=== PATIENT | female | born 1945 | race Caucasian/White ===

== ENCOUNTER 2018-09-08 09:17 | Outpatient (CLI) | payer MEDICARE, OTHER ==
[~2018-09-08] VITALS: Ht 162.6 cm; Wt 108.0 kg
[~2018-09-08 09:17] MED LIST: ASPI-875 PO; CRAN450C PO; CRANBERRY 500 MG PO; ENAL20TA PO; GFN600TCR PO; GUAI1TBM14 PO; HYDR1CAP2 PO; LOVA20TA2 PO; NF-ESOM40C PO; NITR100C PO
[2018-09-08] MEDS ORDERED: ASPI-999 PO (14:49)
[2018-09-08] MEDS ORDERED: CELE200C PO (14:49)
[2018-09-08] MEDS ORDERED: ENAL20TA PO (14:49)
[2018-09-08] MEDS ORDERED: CETI10TA17 PO (14:49)
[2018-09-08] MEDS ORDERED: LOVA20TA2 PO (14:49)
[2018-09-08] MEDS ORDERED: CRAN500T2 PO (14:49)
== END 2018-09-08 14:57 | disposition home or self-care (01) ==
LOC: PREOP 09:17
PROVIDERS: ATTEND Surgery
DX: Z01.818 Encounter for other preprocedural examination (principal)

== ENCOUNTER 2018-09-14 09:46 | Day surgery (SDC) | payer MEDICARE, OTHER ==
[~2018-09-14] VITALS: Ht 162.6 cm; Wt 108.0 kg
[~2018-09-14 09:46] MED LIST changes: +ASPI-999 PO; +CELE200C PO; +CETI10TA17 PO; +CRAN500T2 PO
[2018-09-14] MEDS ORDERED: NS IV 500 ML 500 ML IV PRN (09:55)
[2018-09-14] MEDS ORDERED: NS IV 500 ML 500 ML ONE (09:59)
[2018-09-14] MEDS ORDERED: HURRICAINE EXT TUBE (BENZOCAINE) XX PRN (10:00)
[2018-09-14] MEDS ORDERED: fentaNYL INJECTION 100 MCG/2 ML AMP IVP ONE (10:00)
[2018-09-14] MEDS ORDERED: MIDAZOLAM 2 MG/2 ML (VERSED) VIAL IVP ONE (10:00)
[2018-09-14 10:10] VITALS: BP 183/80
--- NOTE | 2018-09-14 12:04 | Conscious Sedation/ASA ---
Conscious Sedation Pre-Proced Time 10:00 ASA Score 2 For ASA 3 and 4: Consider anesthesia and medical clearance. Also, for patients with a history of failed moderate sedation consider anesthesia. Airway Lungs Heart ASA score ASA 1: a normal healthy patient ASA 2: a patient with a mild systemic disease (mid diabetes, controlled hypertension, obesity ASA 3: a patient with a severe systemic disease that limits activity (angina , COPD, prior Myocardial infarction) ASA 4: a patient with an incapacitating disease that is a constant threat to life (CHF, renal failure) ASA 5: a moribund patient not expected to survive 24 hrs. (ruptured aneurysm) ASA 6: a declared brain patient whose organs are being harvested. For emergent operations, add the letter E after the classification Mallampati Classification Grade 2 Sedation Plan Analgesia, Amnesia, Plan communicated to team members, Discussed options with patient/fam, Discussed risks with patient/fam The patient is an appropriate candidate to undergo the planned procedure, sedation, and anesthesia. The patient immediately re-assessed prior to indication. YANDEL RIDLEY MD Sep 14, 2018 12:04
--- NOTE | 2018-09-14 12:05 | Progress Note-Pre Operative ---
Pre-Operative Progress Note H&P Reviewed The H&P was reviewed, patient examined and no changes noted. Date Seen by Provider: Sep 14, 2018 Time Seen by Provider: 10:00 Date H&P Reviewed: Sep 14, 2018 Time H&P Reviewed: 10:00 Pre-Operative Diagnosis: GERD, screening o YANDEL RIDLEY MD Sep 14, 2018 12:05
[2018-09-14] MEDS ORDERED: morphine INJ 10 MG/ML 1ML (SYR OR VIAL) IV PRN (12:15)
[2018-09-14] MEDS ORDERED: ACETAMINOPHEN 325 MG TABLET PO PRN (12:15)
[2018-09-14] MEDS ORDERED: ONDANSETRON 4 MG/2 ML (SDV) Z0FRAN IV PRN (12:15)
[2018-09-14] MEDS ORDERED: HYDROcodone/APAP 5 MG/325 MG (LORTAB) TAB PO PRN (12:15)
--- OUTSIDE RECORDS SUMMARY | 2018-09-14 12:22 | XMS REPORT | Continuity of Care Document ---
Author Author [facility] Organization [facility] Address Unknown Phone Unavailable Allergies Active Description Code Type Severity Reaction Onset Reported/Identified Relationship to Patient Clinical Status Yes No Known Drug Allergies [id number] Drug Allergy Unknown N/A 2018 Medications There is no data. Problems Date Dx Coded Attending Type Code Diagnosis Diagnosed By 09/02/2013 JHONY MACIEL, JOCELYNE Vyas Ot 401.9 HYPERTENSION NOS 09/02/2013 JHONY MACIEL, JOCELYNE Vyas Ot 715.36 LOC OSTEOARTH NOS-L/LEG 04/17/2015 Ot V76.12 04/17/2015 Ot V76.12 04/17/2015 Ot V76.12 04/17/2015 Ot 272.4 04/17/2015 Ot 780.60 04/17/2015 Ot 789.02 04/17/2015 MARIZAIIKOKI MOSSP Ot V76.12 04/17/2015 KOKI VIVEROS Ot 726.73 04/17/2015 JHONY MACIEL, JOCELYNE Vyas Ot 715.36 04/17/2015 JHONY MACIEL, JOCELYNE Vyas Ot 780.79 04/17/2015 JHONY MACIEL, JOCELYNE Vyas Ot V72.63 04/17/2015 JHONY MACIEL, JOCELYNE Vyas Ot V72.83 04/17/2015 JHONY MACIEL, JOCELYNE Vyas Ot V74.8 04/17/2015 AMAN MACIEL, KEN Issa Ot V76.12 04/18/2015 Ot V76.12 04/18/2015 Ot V76.12 04/18/2015 Ot V76.12 04/18/2015 Ot 272.4 04/18/2015 Ot 780.60 04/18/2015 Ot 789.02 04/18/2015 KOKI VIVEROS Ot V76.12 04/18/2015 KOKI VIVEROS Ot 726.73 04/18/2015 JHONY MACIEL, JOCELYNE Vyas Ot 715.36 04/18/2015 JHONY MACIEL, JOCELYNE P Ot 780.79 04/18/2015 JHONY MACIEL, JOCELYNE P Ot V72.63 04/18/2015 JHONY MACIEL, JOCELYNE P Ot V72.83 04/18/2015 JHONY MACIEL, JOCELYNE P Ot V74.8 04/18/2015 AMAN MACIEL, KEN D Ot V76.12 04/18/2015 AMAN MACIEL, KEN D Ot V76.12 05/08/2015 AMAN MACIEL, KEN D Ot V76.11 05/16/2015 AMAN MACIEL, KEN D Ot 793.80 12/02/2015 Ot V76.12 12/02/2015 Ot V76.12 12/02/2015 Ot 272.4 12/02/2015 Ot 780.60 12/02/2015 Ot 789.02 12/02/2015 KOKI VIVEROS Ot V76.12 12/02/2015 KOKI VIVEROS Ot 726.73 12/02/2015 JHONY MACIEL, JOCELYNE P Ot 715.36 12/02/2015 JHONY MACIEL, JOCELYNE P Ot 780.79 12/02/2015 JHONY MACIEL, JOCELYNE P Ot V72.63 12/02/2015 JHONY MACIEL, JOCELYNE P Ot V72.83 12/02/2015 JHONY MACIEL, JOCELYNE P Ot V74.8 12/02/2015 AMAN MACIEL, KEN D Ot V76.12 12/02/2015 AMAN MCAIEL, KEN D Ot V76.11 12/02/2015 AMAN MACIEL, KEN D Ot 793.80 12/27/2015 AMAN MACIEL, KEN D Ot D24.2 06/24/2016 Ot V76.12 OTH SCREEN MAMMO-MALIGN NEOPLASM OF ANDREI 06/24/2016 Ot V76.12 OTH SCREEN MAMMO-MALIGN NEOPLASM OF ANDREI 06/24/2016 Ot 272.4 HYPERLIPIDEMIA NEC/NOS 06/24/2016 Ot 780.60 FEVER, UNSPECIFIED 06/24/2016 Ot 789.02 ABDOMINAL PAIN, LEFT UPPER QUADRANT 06/24/2016 KOKI VIVEROS Ot V76.12 OTH SCREEN MAMMO-MALIGN NEOPLASM OF ANDREI 06/24/2016 KOKI VIVEROS TELEPHONE SOLICITOR Ot 726.73 CALCANEAL SPUR 06/24/2016 JOCELYNE BOOKER MD Ot 715.36 LOC OSTEOARTH NOS-L/LEG 06/24/2016 JOCELYNE BOOKER MD Ot 780.79 OTH MALAISE FATIGUE 06/24/2016 JOCELYNE BOOKER MD Ot V72.63 PRE-PROCEDURAL LABORATORY EXAMINATION 06/24/2016 JOCELYNE BOOKER MD Ot V72.83 EXAM PRE-OPERATIVE NEC 06/24/2016 JOCELYNE BOOKER MD Ot V74.8 SCREEN-BACTERIAL DIS NEC 06/24/2016 AMAN MACIEL, KEN Issa Ot V76.12 OTH SCREEN MAMMO-MALIGN NEOPLASM OF ANDREI 06/24/2016 AMAN MACIEL, KEN Issa Ot V76.11 SCRN MAMMO-HIGH RISK PT, MALIGNANT NEOPL 06/24/2016 AMAN MACIEL, KEN Issa Ot 793.80 UNSPEC ABNORMAL MAMMOGRAM 06/24/2016 AMAN MACIEL, KEN Issa Ot D24.2 BENIGN NEOPLASM OF LEFT BREAST 06/24/2016 ALOK ESCALANTE N INVENTORY CONTROL ANALYST Ot N60.02 SOLITARY CYST OF LEFT BREAST 06/25/2016 Ot V76.12 OTH SCREEN MAMMO-MALIGN NEOPLASM OF ANDREI 06/25/2016 Ot V76.12 OTH SCREEN MAMMO-MALIGN NEOPLASM OF ANDREI 06/25/2016 Ot 272.4 HYPERLIPIDEMIA NEC/NOS 06/25/2016 Ot 780.60 FEVER, UNSPECIFIED 06/25/2016 Ot 789.02 ABDOMINAL PAIN, LEFT UPPER QUADRANT 06/25/2016 KOKI VIVEROS TELEPHONE SOLICITOR Ot V76.12 OTH SCREEN MAMMO-MALIGN NEOPLASM OF ANDREI 06/25/2016 KOKI VIVEROS TELEPHONE SOLICITOR Ot 726.73 CALCANEAL SPUR 06/25/2016 JOCELYNE BOOKER MD Ot 715.36 LOC OSTEOARTH NOS-L/LEG 06/25/2016 JOCELYNE BOOKER MD Ot 780.79 OTH MALAISE FATIGUE 06/25/2016 JOCELYNE BOOKER MD Ot V72.63 PRE-PROCEDURAL LABORATORY EXAMINATION 06/25/2016 JOCELYNE BOOKER MD Ot V72.83 EXAM PRE-OPERATIVE NEC 06/25/2016 JOCELYNE BOOKER MD Ot V74.8 SCREEN-BACTERIAL DIS NEC 06/25/2016 AMAN MACIEL, KEN Issa Ot V76.12 OTH SCREEN MAMMO-MALIGN NEOPLASM OF ANDREI 06/25/2016 AMAN MACIEL, KEN Issa Ot V76.11 SCRN MAMMO-HIGH RISK PT, MALIGNANT NEOPL 06/25/2016 AMAN MACIEL, KEN Issa Ot 793.80 UNSPEC ABNORMAL MAMMOGRAM 06/25/2016 AMAN MACIEL, KEN Issa Ot D24.2 BENIGN NEOPLASM OF LEFT BREAST 06/25/2016 ALOK ESCALANTE INVENTORY CONTROL ANALYST Ot N60.02 SOLITARY CYST OF LEFT BREAST 06/25/2016 ALOK ESCALANTE INVENTORY CONTROL ANALYST Ot N60.02 SOLITARY CYST OF LEFT BREAST 07/02/2016 JOCELYNE BOOKER MD Ot 715.36 LOC OSTEOARTH NOS-L/LEG 07/02/2016 JOCELYNE BOOKER MD Ot 780.79 OTH MALAISE FATIGUE 07/02/2016 JOCELYNE BOOKER MD Ot V72.63 PRE-PROCEDURAL LABORATORY EXAMINATION 07/02/2016 JOCELYNE BOOKER MD Ot V72.83 EXAM PRE-OPERATIVE NEC 07/02/2016 JOCELYNE BOOKER MD Ot V74.8 SCREEN-BACTERIAL DIS NEC 07/15/2016 ALOK ESCALANTE INVENTORY CONTROL ANALYST Ot N60.02 SOLITARY CYST OF LEFT BREAST 07/20/2016 ALOK ESCALANTE INVENTORY CONTROL ANALYST Ot N60.02 SOLITARY CYST OF LEFT BREAST 11/01/2016 JOCELYNE BOOKER MD Ot 715.36 LOC OSTEOARTH NOS-L/LEG 11/01/2016 JOCELYNE BOOKER MD Ot 780.79 OTH MALAISE FATIGUE 11/01/2016 JOCELYNE BOOKER MD Ot V72.63 PRE-PROCEDURAL LABORATORY EXAMINATION 11/01/2016 JOCELYNE BOOKER MD Ot V72.83 EXAM PRE-OPERATIVE NEC 11/01/2016 JOCELYNE BOOKER MD Ot V74.8 SCREEN-BACTERIAL DIS NEC 2018 YANDEL RIDLEY MD, Ot Z01.818 ENCOUNTER FOR OTHER PREPROCEDURAL EXAMIN 09/12/2018 YANDEL RIDLEY MD, Ot Z01.818 ENCOUNTER FOR OTHER PREPROCEDURAL EXAMIN Procedures Code Description Performed By Performed On 81.54 08/30/2013 Results There is no data. Encounters ACCT No. Visit Date/Time Discharge Status Pt. Type Provider Facility Loc./Unit Complaint [id number] 2018 09:17:00 2018 14:57:00 DIS Outpatient YANDEL RIDLEY MD [facility] PREOP COLONOSCOPY/EGD [id number] 06/24/2016 13:11:00 06/24/2016 23:59:59 CLS Outpatient ALOK ESCALANTE APRN [facility] RAD 6 MONTH FOLLOW UP OF CYST IN LT BREAST [id number] 12/02/2015 10:42:00 12/02/2015 23:59:59 CLS Outpatient KEN NEWTON MD [facility] RAD BENIGN TUMOR OF L BREAST [id number] 04/24/2015 07:45:00 04/24/2015 23:59:59 CLS Outpatient KEN NEWTON MD [facility] RAD ABNORMAL MAMMO [id number] 04/17/2015 15:13:00 04/17/2015 23:59:59 CLS Outpatient KEN NEWTON MD [facility] RAD SCREENING [id number] 04/17/2014 09:25:00 04/17/2014 23:59:59 CLS Outpatient KEN NEWTON MD [facility] RAD ROUTINE [id number] 08/30/2013 06:06:00 09/02/2013 11:10:00 DIS Inpatient JOCELYNE BOOKER MD [facility] SURGICAL LEFT KNEE OSTEOARTHRITIS [id number] 08/28/2013 12:08:00 08/28/2013 23:59:59 CLS Outpatient JOCELYNE BOOKER MD [facility] PREOP LEFT KNEE OSTEOARTHRITIS [id number] 05/16/2013 09:43:00 05/16/2013 23:59:59 CLS Outpatient KOKI VIVEROS [facility] RAD L FOOT PAIN [id number] 04/12/2013 08:57:00 04/12/2013 23:59:59 CLS Outpatient KOKI VIVEROS [facility] RAD SCREENING [id number] 09/14/2018 11:30:00 PEN Preadmit YANDEL RIDLEY MD [facility] ENDO SCREENING/ABD PAIN/REFLUX [id number] 10/06/2012 11:31:00 Document Registration [id number] 03/16/2012 13:46:00 Document Registration [id number] 02/26/2011 07:45:00 Document Registration [id number] 01/29/2010 14:14:00 Document Registration
[2018-09-14] MEDS ORDERED: fentaNYL INJECTION 100 MCG/2 ML AMP ONE ×3 (13:15→14:11)
[2018-09-14] MEDS ORDERED: LIDOCAINE JELLY 2% 6 ML SYRINGE ONE (13:15)
[2018-09-14] MEDS ORDERED: MIDAZOLAM 2 MG/2 ML (VERSED) VIAL ONE ×5 (13:15→13:16)
[2018-09-14] MEDS ORDERED: HURRICAINE EXT TUBE (BENZOCAINE) ONE (13:16)
--- NOTE | 2018-09-14 14:51 | Progress Note-Post Operative ---
Post-Operative Progess Note Surgeon (s)/Campaign Assistant (s) Surgeon YANDEL RIDLEY MD Campaign Assistant: none Pre-Operative Diagnosis GERD, screening colo Post-Operative Diagnosis reflux esophagitis(stage 2), intact band, no slippage/erosion, mild gastritis. chronic stage 2 ext and int hemorrhoids. Procedure & Operative Findings Date of Procedure 09/14/18 Procedure Performed/Findings EGD wtih bx. Colonscopy. Anesthesia Type CS Estimated Blood Loss Estimated blood loss (mL): minimal Specimens/Packing Specimens Removed GE jxn, antrum YANDEL RIDLEY MD Sep 14, 2018 2:51 pm
--- NOTE | 2018-09-14 14:54 | Discharge Inst-Surgical ---
D/C Lap Instructions-KEYANA Follow Up PRN Activity as tolerated High Fiber Diet 25g or more per day Avoid Alcohol, Caffeine, Spicy [place] and Acid foods. Drink 64 fluid oz or more of fluids per day. Symptoms to Report: Fever over 101 degree F, Nausea/Vomiting If any problems/questions: Contact your physician or go to Emergency Room YANDEL RIDLEY MD Sep 14, 2018 2:53 pm
[2018-09-14 15:05] VITALS: BP 159/88
[2018-09-14 15:27] VITALS: BP 163/89
[2018-09-14 15:35] VITALS: BP 163/89
--- NOTE | 2018-09-14 23:32 | OPERATIVE REPORT ---
DATE OF SERVICE: 09/14/2018 ATTENDING PRIMARY CARE PHYSICIAN: Dr. Francesca Patricia. PREOPERATIVE DIAGNOSIS: Gastroesophageal reflux disease, screening colonoscopy. POSTOPERATIVE DIAGNOSES: Reflux esophagitis stage II, intact adjustable gastric band with no slippage or erosion, mild gastritis. Mild chronic stage II external and internal hemorrhoids. Remainder of the rectum and colon were normal. PROCEDURE: EGD with biopsy, colonoscopy. SURGEON: Yandel Ridley MD ANESTHESIA: Conscious sedation. ESTIMATED BLOOD LOSS: Minimal. FINDINGS: EGD, reflux esophagitis stage II, intact band, no slippage or erosion. Mild gastritis. No distal obstructions. Colonoscopy: Chronic stage II external and internal hemorrhoids, not actively edematous nor inflamed and no bleeding. The remainder of the rectum and colon were normal. DISPOSITION: The patient tolerated the procedure well. INDICATIONS: The patient is a 73-year-old female known to us. She has had a history of morbid obesity, hypertension, gastroesophageal reflux disease and degenerative joint disease. She is also status post laparoscopic adjustable gastric band within [facility] 10 band, 03/2017 in [place]. We have seen her before in the past for band adjustments. She has developed reflux and regurgitation back in 2013. At that time, we removed all the fluids from her band. Since that time, she has not had any issues with dysphagia; however, does have some abdominal discomfort. She states an epigastric burning sensation as well as crampy pain. She is also in need of a screening colonoscopy. Her last colonoscopy was approximately 14 years ago. DESCRIPTION OF PROCEDURE: The patient was brought to the endoscopy suite, laid in the left lateral decubitus position with head slightly elevated. After adequate IV pain and sedating medications and conscious sedation anesthesia, the mouthpiece was applied. The endoscope was placed in the mouth, visualizing the pharynx and hypopharyngeal region. Vocal cords, epiglottis and vallecula identified and appeared to be normal. The endoscope was then gently intubated at the esophageal opening and esophagus insufflated. The endoscope was then advanced to the first, second and third portion of the esophagus at the level of the GE junction, a reflux esophagitis stage II identified. There were no ulcers or strictures identified in this region. A biopsy was taken using forceps with visualization of good hemostasis. Job ID: [id number] DocumentID: [id number] Dictated Date: 09/14/2018 14:31:25 Bowling Ball Patcher Date: 09/14/2018 23:32:19 Dictated By: YANDEL RIDLEY MD MTDD
--- NOTE | 2018-09-14 23:39 | OPERATIVE REPORT ---
DATE OF SERVICE: 09/14/2018 CONTINUATION The gastric pouch was identified and appeared to be intact with no band slippage or erosions. The endoscope was easily passed through the band without any resistance. The endoscope was then retroflexed visualizing an intact band again with no slippage or erosion. There was a mild severity gastritis. There were no ulcerations, polyps or any neoplasms. A biopsy was taken of the stomach antrum with forceps for H. pylori with visualization of good hemostasis. Endoscope was then advanced to the pylorus and the first and second portion of the duodenum, which appeared normal with no distal obstructions. The endoscope was then slowly withdrawn with taking a second look and suctioning of residual air with no additional findings. The patient tolerated this portion of procedure well. We feel that the majority of her symptoms may be due to lifestyle and diet and we will recommend compliance, status post a gastric restrictive procedure with small and more frequent meals, avoidance of eating at night as well as stopping eating when she feels any resistance or pressure at all. We will also have her continue with her Protonix 40 mg daily as well as Carafate p.r.n. Under the same anesthesia, we then proceeded with the colonoscopy portion of the procedure. A digital rectal examination was performed, which revealed chronic stage II external and internal hemorrhoids, not actively edematous or inflamed and no bleeding. Normal sphincter tone was felt and there were no palpable masses. The endoscope was then intubated to the anus and rectum gently insufflated. The endoscope was then advanced through the valves of Pearson of the rectum with no polyps or any neoplasms identified. Endoscope was then advanced through the sigmoid colon where no diverticulosis identified. Endoscope was then advanced to the remainder of the descending, transverse and ascending colon to the cecum. These segments were normal. There were no polyps or any neoplasms identified. The endoscope was then slowly withdrawn while taking a second look and suctioning of residual air with no additional findings. The patient tolerated the procedure well. We will have her continue with medical management with a high fiber diet with at least 25 grams of fiber per day as well as at least 64 fluid ounces of water daily to promote soft stools on a daily basis. She does not need another colonoscopy for another 10 years. Job ID: [id number] DocumentID: [id number] Dictated Date: 09/14/2018 14:34:56 [employer] Manager Date: 09/14/2018 23:38:39 Dictated By: YANDEL RIDLEY MD
== END 2018-09-14 15:35 | disposition home or self-care (01) ==
LOC: ENDO 09:46
PROVIDERS: ATTEND Surgery
DX: Z12.11 Encounter for screening for malignant neoplasm of colon (principal); K64.1 Second degree hemorrhoids; K29.70 Gastritis, unspecified, without bleeding; K20.8 Other esophagitis; K21.0 Gastro-esophageal reflux disease with esophagitis; I10 Essential (primary) hypertension; Z98.84 Bariatric surgery status; M17.0 Bilateral primary osteoarthritis of knee; Z79.82 Long term (current) use of aspirin; Z79.899 Other long term (current) drug therapy
CPT/HCPCS: 43239; G0121; 88305; 88312